=== PATIENT | male | born 1985 | race Caucasian/White ===

== ENCOUNTER 2021-06-09 00:41 | Emergency (ER) | payer MEDICAID ==
[~2021-06-09] VITALS: Ht 172.7 cm; Wt 68.0 kg
[2021-06-09 01:00] VITALS: BP 130/86
[2021-06-09] MEDS ORDERED: KETOROLAC 60MG/2ML VIAL IM STA (01:11)
[2021-06-09] MEDS ORDERED: ONDANSETRON 4MG ODT PO STA (01:11)
[2021-06-09] MEDS ORDERED: HALOPERIDOL LACTATE 5MG/ML VIAL IM ONE (01:15)
== END 2021-06-09 01:24 | disposition left against medical advice (07) ==
LOC: ER 00:41
DX: R10.13 Epigastric pain (principal); F17.290 Nicotine dependence, other tobacco product, uncomplicated; F10.10 Alcohol abuse, uncomplicated; F12.10 Cannabis abuse, uncomplicated; Y90.9 Presence of alcohol in blood, level not specified
CPT/HCPCS: 99283; 99406; J1630; J1885; Q0162

== ENCOUNTER 2021-06-09 01:56 | Emergency (ER) | payer MEDICAID ==
[~2021-06-09] VITALS: Ht 172.7 cm; Wt 82.0 kg
[2021-06-09] MEDS ORDERED: HALOPERIDOL LACTATE 5MG/ML VIAL IM ONE (02:30)
[2021-06-09 03:15] VITALS: BP 111/67
== END 2021-06-09 03:20 | disposition home or self-care (01) ==
LOC: ER 01:56
DX: F12.10 Cannabis abuse, uncomplicated (principal); R10.9 Unspecified abdominal pain
CPT/HCPCS: 93005; 96372; 99283